=== PATIENT | female | born 1945 | race Caucasian/White ===

== ENCOUNTER 2023-04-16 14:49 | Emergency (ER) | payer OTHER, SELFPAY ==
[2023-04-16] VITALS (10 sets, daily range): BP systolic 87–157; BP diastolic 55–117; BMI 25.8
[2023-04-16 15:18] LABS: % Basophils 0.1 % (0-2); % Eosinophils 0.8 % (0-6); % Immature Granulocytes 0.3 % (0-0.5); % Lymphocytes 16.6 % (20.5-51.1); % Monocytes 8.5 % (1.7-9.3); % Neutrophils 73.7 % (42.2-75.2); Absolute Eosinophils 0.1 10^3/uL (0-0.7); Absolute Lymphocytes 1.6 10^3/uL (1.2-3.4); Absolute Monocytes 0.8 10^3/uL (0.1-0.6); Hematocrit 35.6 % (37.0-47.0); Hemoglobin 12.4 g/dL (12.0-16.0); Mean Corp Hgb Conc. 34.8 g/dL (33.0-37.0); Mean Corpuscular Hgb 30.2 pg (27.0-31.0); Mean Corpuscular Volume 86.8 fL (81.0-99.0); Mean Platelet Volume 8.8 fL (7.4-10.4); Nucleated Red Blood Cells % 0 %; Platelet Count 340 10^3/uL (130-400); White Blood Cell Count 9.5 10^3/uL (4.8-10.8)
--- NOTE | 2023-04-16 15:34 | ED.GENMED ---
History of Present Illness
<DINORAH Rush - Last Filed: 04/16/23 19:28>
General
Chief Complaint: Dizziness
Source: patient
Exam Limitations: none
Time Seen by Provider: 04/16/23 15:04
Nursing documentation reviewed up to this point in time: agreed with
Travel History
Have you had any contact with someone who has COVID-19?: No
Do you have any symptoms of coronavirus? Fever > 100 degrees, chills, cough, shortness of breath, sore throat, loss of taste or smell, muscle aches, or headache?: No
History of Present Illness
History of Present Illness:
77-year-old female presents to the ER for evaluation. Patient points has a history of vertigo/dizziness and normally takes meclizine. She has been dealing with vertigo in the past week. She reports with her vertigo she does not necessarily have a
room spinning sensation but she normally will feel off balance with vertigo. She reports today she came to the ER because it was not going away. She also noticed that yesterday she felt very warm but did not realize she had a fever. She denies
any runny nose nasal congestion sore throat. She denies any nausea vomiting abdominal pain urinary frequency urgency. She does report that she was treated for UTI 3 weeks ago
Past History
<DINORAH Rush - Last Filed: 04/16/23 19:28>
Past History
ED Past Medical History: GERD, HTN, Hypercholesterolemia, NIDDM and Other (carpal tunnel syndrome, Vertigo, Anemia,)
ED Past Surgical History: Appendectomy
Social History
Tobacco: Non-smoker
Alcohol: None
Drug: None
Personal:
Living: alone
Employment: Employed
Family History
Family History: Hypertension
Review of Systems
<DINORAH Rush - Last Filed: 02/17/24 19:28>
Review of Systems
Allergies reviewed?: Yes
All Other Systems: ROS reviewed and negative except as documented in HPI and ROS
Constitutional: Reports fever
EENT: Reports no symptoms
Respiratory: Reports no symptoms; Denies cough
Cardiac: Reports no symptoms
ABD/GI: Reports no symptoms; Denies abdominal pain, nausea or vomiting
: Reports no symptoms; Denies flank pain, urgency or discharge
Musculoskeletal: Reports no symptoms
Skin: Reports no symptoms
Neurological: Reports dizzy
Hematologic/Lymphatic: Reports no symptoms
Psychiatric: Reports no symptoms
Phy Exam
<DINORAH Rush - Last Filed: 04/16/23 19:28>
General Physical Exam
General Presentation: no apparent distress
General age: appears stated age
General Skin: warm and dry
General Habitus: normal
General Mental: alert
General Hydration: appears well hydrated
Cardiovascular Exam
Cardiovascular Exam: no murmur and tachycardia
Pulmonary Exam
Pulmonary Exam: lungs clear
Neurological Exam
Neurological Exam: alert, oriented x3, no motor deficits, no sensory deficits and speech normal
Mindy Coma Scale
Eye Opening: Spontaneous
Verbal Response: Oriented
Motor Response: Obeys Commands
GCS Total Score: 15
Cerebellar
Cerebellar Function: normal finger to nose
Musculoskeletal Exam
Musculoskeletal Exam: full ROM
Skin Exam
Skin Exam: normal color and warm/dry
Psychiatric Exam
Psychiatric Exam: normal mood/affect
<Elva Flores MD - Last Filed: 04/16/23 18:37>
Mindy Coma Scale
GCS Total Score: 15
<Pedrito Collado PA-C - Last Filed: 04/17/23 08:52>
Mclean Coma Scale
GCS Total Score: 15
Course
<DINORAH Rush - Last Filed: 04/16/23 19:28>
Orders/Labs/Results
Orders:
Orders
04/16/23 14:57
Electrocardiogram (*1) Urgent
Reason for Study: Vertigo / Dizzy
04/16/23 14:58
EKG- Treatment ONCE
04/16/23 15:00
Blood Culture Q30M
MELANIE Source: Blood/Venous
Specimen Description:
Blood Culture Q30M
MELANIE Source: Blood/Venous
Specimen Description:
Influenza A+B Rapid Molecular Urgent
MELANIE Source: Nasal Swab
Specimen Description:
04/16/23 15:01
COVID-19 Antigen Urgent
Source: Nasal Swab
Complete Blood Count/With Diff Urgent
Comprehensive Metabolic Panel Urgent
Lactic Acid Urgent
Troponin I Urgent
04/16/23 16:06
UA Reflex to Culture [Urinalysis Reflex To Culture] Urgent
Date Specimen was Collected: 04/16/23
Time Specimen was Collected: 15:57
Urine Microscopic Reflex Cult Urgent
Urine Culture Urgent
MELANIE Source: U
Specimen Description:
Date Specimen was Collected: 04/16/23
Time Specimen was Collected: 15:57
04/16/23 17:09
Acetaminophen [Tylenol] 650 mg PO NOW STA
04/16/23 17:36
CefTRIAXone [Rocephin] 1,000 mg IV NOW STA
04/16/23 17:37
Meclizine [Antivert] 25 mg PO NOW STA
Abnormal Lab Results
04/16/23 04/16/23
15:01 16:06
RBC 4.10 L 10^6/uL
(4.20-5.40)
Hct 35.6 L %
(37.0-47.0)
Absolute Neuts (auto) 7.0 H 10^3/uL
(1.4-6.5)
Absolute Monos (auto) 0.8 H 10^3/uL
(0.1-0.6)
Lymphocytes % 16.6 L %
(20.5-51.1)
Glucose 119 H mg/dl
(70-99)
Ur Occult Blood Reflex 1+ A
(Negative)
Urine Nitrite (Reflex) Positive A
(Negative)
Leukocyte Esterase Rfl 2+ A
(Negative)
Urine WBC (Reflex) 11-15 A /HPF
(0-5)
Urine Bacteria (Reflex) Many A
(Negative)
Urine Albumin (Reflex) 1+ A
(Neg - Trace)
04/16/23 15:01
04/16/23 15:01
Vital Signs
Initial and Last Documented VS:
Initial Vital Signs
Temp Pulse Resp BP Pulse Ox
100.4 F H 108 20 87/76 99
04/16/23 14:51 04/16/23 14:51 04/16/23 14:51 04/16/23 14:51 04/16/23 14:51
Last Documented Vital Signs
Temp Pulse Resp BP Pulse Ox
100.4 F H 96 16 145/57 93
04/16/23 14:51 04/16/23 19:30 04/16/23 19:30 04/16/23 18:08 04/16/23 18:30
Wiper Blender consulted with Physician
Wiper Blender consulted with physician?: Yes
Name of Physician Consulted: lucio
<Elva Flores MD - Last Filed: 04/16/23 18:37>
Orders/Labs/Results
Orders:
Orders
04/16/23 14:57
Electrocardiogram (*1) Urgent
Reason for Study: Vertigo / Dizzy
04/16/23 14:58
EKG- Treatment ONCE
04/16/23 15:00
Blood Culture Q30M
MELANIE Source: Blood/Venous
Specimen Description:
Blood Culture Q30M
MELANIE Source: Blood/Venous
Specimen Description:
Influenza A+B Rapid Molecular Urgent
MELANIE Source: Nasal Swab
Specimen Description:
04/16/23 15:01
COVID-19 Antigen Urgent
Source: Nasal Swab
Complete Blood Count/With Diff Urgent
Comprehensive Metabolic Panel Urgent
Lactic Acid Urgent
Troponin I Urgent
04/16/23 16:06
UA Reflex to Culture [Urinalysis Reflex To Culture] Urgent
Date Specimen was Collected: 04/16/23
Time Specimen was Collected: 15:57
Urine Microscopic Reflex Cult Urgent
Urine Culture Urgent
MELANIE Source: U
Specimen Description:
Date Specimen was Collected: 04/16/23
Time Specimen was Collected: 15:57
04/16/23 17:09
Acetaminophen [Tylenol] 650 mg PO NOW STA
04/16/23 17:36
CefTRIAXone [Rocephin] 1,000 mg IV NOW STA
04/16/23 17:37
Meclizine [Antivert] 25 mg PO NOW STA
Abnormal Lab Results
04/16/23 04/16/23
15:01 16:06
RBC 4.10 L 10^6/uL
(4.20-5.40)
Hct 35.6 L %
(37.0-47.0)
Absolute Neuts (auto) 7.0 H 10^3/uL
(1.4-6.5)
Absolute Monos (auto) 0.8 H 10^3/uL
(0.1-0.6)
Lymphocytes % 16.6 L %
(20.5-51.1)
Glucose 119 H mg/dl
(70-99)
Ur Occult Blood Reflex 1+ A
(Negative)
Urine Nitrite (Reflex) Positive A
(Negative)
Leukocyte Esterase Rfl 2+ A
(Negative)
Urine WBC (Reflex) 11-15 A /HPF
(0-5)
Urine Bacteria (Reflex) Many A
(Negative)
Urine Albumin (Reflex) 1+ A
(Neg - Trace)
04/16/23 15:01
04/16/23 15:01
Vital Signs
Initial and Last Documented VS:
Initial Vital Signs
Temp Pulse Resp BP Pulse Ox
100.4 F H 108 20 87/76 99
04/16/23 14:51 04/16/23 14:51 04/16/23 14:51 04/16/23 14:51 04/16/23 14:51
Last Documented Vital Signs
Temp Pulse Resp BP Pulse Ox
100.4 F H 96 16 145/57 93
04/16/23 14:51 04/16/23 19:30 04/16/23 19:30 04/16/23 18:08 04/16/23 18:30
Blakelt;Pedrito Collado PA-C - Last Filed: 04/17/23 08:52>
Orders/Labs/Results
Orders:
Orders
04/16/23 14:57
Electrocardiogram (*1) Urgent
Reason for Study: Vertigo / Dizzy
04/16/23 14:58
EKG- Treatment ONCE
04/16/23 15:00
Blood Culture Q30M
MELANIE Source: Blood/Venous
Specimen Description:
Blood Culture Q30M
MELANIE Source: Blood/Venous
Specimen Description:
Influenza A+B Rapid Molecular Urgent
MELANIE Source: Nasal Swab
Specimen Description:
04/16/23 15:01
COVID-19 Antigen Urgent
Source: Nasal Swab
Complete Blood Count/With Diff Urgent
Comprehensive Metabolic Panel Urgent
Lactic Acid Urgent
Troponin I Urgent
04/16/23 16:06
UA Reflex to Culture [Urinalysis Reflex To Culture] Urgent
Date Specimen was Collected: 04/16/23
Time Specimen was Collected: 15:57
Urine Microscopic Reflex Cult Urgent
Urine Culture Urgent
MELANIE Source: U
Specimen Description:
Date Specimen was Collected: 04/16/23
Time Specimen was Collected: 15:57
04/16/23 17:09
Acetaminophen [Tylenol] 650 mg PO NOW STA
04/16/23 17:36
CefTRIAXone [Rocephin] 1,000 mg IV NOW STA
04/16/23 17:37
Meclizine [Antivert] 25 mg PO NOW STA
Abnormal Lab Results
04/16/23 04/16/23
15:01 16:06
RBC 4.10 L 10^6/uL
(4.20-5.40)
Hct 35.6 L %
(37.0-47.0)
Absolute Neuts (auto) 7.0 H 10^3/uL
(1.4-6.5)
Absolute Monos (auto) 0.8 H 10^3/uL
(0.1-0.6)
Lymphocytes % 16.6 L %
(20.5-51.1)
Glucose 119 H mg/dl
(70-99)
Ur Occult Blood Reflex 1+ A
(Negative)
Urine Nitrite (Reflex) Positive A
(Negative)
Leukocyte Esterase Rfl 2+ A
(Negative)
Urine WBC (Reflex) 11-15 A /HPF
(0-5)
Urine Bacteria (Reflex) Many A
(Negative)
Urine Albumin (Reflex) 1+ A
(Neg - Trace)
04/16/23 15:01
04/16/23 15:01
Vital Signs
Initial and Last Documented VS:
Initial Vital Signs
Temp Pulse Resp BP Pulse Ox
100.4 F H 108 20 87/76 99
04/16/23 14:51 04/16/23 14:51 04/16/23 14:51 04/16/23 14:51 04/16/23 14:51
Last Documented Vital Signs
Temp Pulse Resp BP Pulse Ox
100.4 F H 96 16 145/57 93
04/16/23 14:51 04/16/23 19:30 04/16/23 19:30 04/16/23 18:08 04/16/23 18:30
<DINORAH Rush - Last Filed: 04/16/23 19:28>
MDM/Problems Addressed
Differential Diagnosis Includes:
not limited to:
Vertigo dehydration infection
MDM/Problems Addressed:
Patient is a 77-year-old female with known vertigo who presented with dizziness that she describes as her typical vertigo today however it is not resolving. This is what prompted her to come to the ER. She did have meclizine. She did admit to
having a warm face yesterday did present with a low-grade temperature here in the ER however denied any recent illness. She denies any runny nose cough nasal congestion sore throat. She reports recently 3 weeks ago she had a UTI that was treated.
At that time however she reports she was asymptomatic. She reports her family doctor told her she had it but she was unaware because of no symptoms. She does present here again with a low-grade temperature of 100.4 with a normal white count 9.5
stable hemoglobin normal lactic acid normal renal function urine does appear infected. She is negative for COVID-negative influenza
Patient was given fluids here in the ER along with meclizine and 1 dose of Rocephin. She was monitored here she is steady and ambulatory with her cane. She feels safe to go home. Case d/c w/ ED attending who evaluated patient. will d/c w/ Keflex.
Chronic conditions affecting care:
vertigo
<DINORAH Rush - Last Filed: 04/16/23 19:28>
*Pulse Oximetry
Patient hypoxic: no
*EKG
Interpreted by ED Provider?: Yes
Heart Rate: 102
Rate: tachycardiac
Rhythm: sinus and other (with pacs )
Ischemia: no ischemia
*Critical Care Note
Total Time (30-74mins, 75-104mins- exclusive of procedures): Not Applicable
<Pedrito Collado PA-C - Last Filed: 04/17/23 08:52>
Update Note
Update Note:
April 17 8:51 AM: Blood cultures positive for gram-negative bacilli. Patient states she was not feeling well this morning. Recommended she come back as soon as possible for further evaluation and potential admission to hospital secondary to
gram-negative bacteremia
ED Attending Note
<DINORAH Rush - Last Filed: 04/16/23 19:28>
-
Portions of this chart may have been created with voice recognition software.� Occasional wrong word or��sound alike� substitutions may have occurred due to the inherent limitations of voice recognition software.
<Elva Flores MD - Last Filed: 04/16/23 18:37>
ED Attending Note
Patient seen and examined by attending physician: Yes
I performed the substantive portion of visit, reviewed & personally made and approve the management plan that is documented in note by myself or ALISA.: Yes
ED Attending Note:
Pt awake, alert well appearing, neuroint act. No 'red flag' findings/sxs to suggest central process. Encouraged pt to check ucx for final report. Will ambulate before d/c
Discharge Plan
Departure
Patient Disposition: Home (Routine Discharge)
Date of Disposition: 04/16/23
Time of Disposition: 19:23
Patient with high blood pressure during this ER visit?: Yes
Condition: Fair
Covid-19: Negative COVID-19
Discharge Problem:
Vertigo, Acute UTI
Instructions: Urinary Tract Infection, Adult (DC), Vertigo (a Type of Dizziness) (DC), BLOOD PRESSURE
Prescriptions:
New
cephalexin 500 mg capsule
500 mg PO Q6H Qty: 28 0RF
No Action
atenolol [Tenormin] 100 MG tablet
100 mg PO HS
simvastatin 20 MG tablet
20 mg PO HS
metformin 500 MG tablet extended release 24 hr
500 mg PO BID
multivitamin Tablet
1 tab PO DAILY
tamsulosin 0.4 mg Capsule
0.4 mg PO DAILY
aspirin 81 MG tablet,chewable
81 mg PO HS
amlodipine 5 mg Tablet
5 mg PO DAILY 30 Days Qty: 30 0RF
tramadol 50 mg Tablet
50 mg PO Q6HPRN PRN (Reason: moderate pain) 30 Days Qty: 30 0RF
acetaminophen [Pain Reliever ES(acetaminophn)] 500 mg Tablet
1,000 mg PO TID 14 Days Qty: 84 0RF
pantoprazole 40 mg Tablet,Delayed Release (Dr/Ec)
40 mg PO DAILY 30 Days Qty: 30 0RF
gabapentin 100 mg Capsule
100 mg PO TID 30 Days Qty: 90 0RF
prednisone 10 mg Tablet
See Rx Instructions .ROUTE .COMPLEX Qty: 30 0RF
Rx Instructions:
Take By Mouth starting Tuesday01/03/22:
30 mg daily x3 days,20 mg daily x3 days, 10 mg daily x3 days.
Referrals:
Shekhar Gonzales MD [Family Provider] -
Activity Restrictions/Additional Instructions:
As discussed you have a urinary tract infection. Take antibiotic as directed. This medication was sent to your pharmacy. Stay well-hydrated. You may continue to take your meclizine as needed.
Follow-up with family doctor in the next 2 to 3 days for reevaluation of symptoms. Return if any worsening of symptoms of fevers nausea vomiting back pain, dizziness difficulty walking or any further concerns.
Interventions
Interventions:
*Risk Screen - Suicide Last Done: 04/16/23 14:51
*General Assessment Last Done: 04/16/23 14:51
*Neglect/Abuse Screening Last Done: 04/16/23 14:51
*ED COVID-19 Vaccine History Last Done: 04/16/23 14:51
*Nursing Disposition Last Done: 04/16/23 20:28
ED- Neurological Assessment Last Done: 04/16/23 15:05
ED Swallowing Screen Last Done: 04/16/23 17:15
Discharge Date and Time
Discharge Date/Time: 04/16/23 20:29
[2023-04-16 15:38] LABS: COVID-19 Antigen Negative (Negative)
[2023-04-16 15:45] LABS: ALT (SGPT) 13 U/L (0-35); AST (SGOT) 21 U/L (14-36); Albumin 3.7 g/dl (3.5-5.0); Alkaline Phosphatase 85 U/L (38-126); Blood Urea Nitrogen 15 mg/dl (7-17); Calcium 9.6 mg/dl (8.4-10.2); Carbon Dioxide 26 mmol/L (22-30); Chloride 99 mmol/L (98-107); Estimated Creatinine Clearance 50 ml/min; Glucose 119 mg/dl (70-99); Lactic Acid 1.5 mmol/L (0.7-2.0); Potassium 4.2 mmol/L (3.5-5.1); Sodium 136 mmol/L (135-145); Total Bilirubin 0.5 mg/dl (0.2-1.3); Total Protein 6.4 g/dl (6.3-8.2); eGFR > 60.00
[2023-04-16 15:56] LABS: Troponin I < 0.012 ng/ml
[2023-04-16 16:15] LABS: Urine Albumin 1+ (Neg - Trace); Urine Bilirubin Negative (Negative); Urine Character Very Cloudy (Clear); Urine Color Yellow; Urine Glucose Negative (Negative); Urine Ketone Negative (Negative); Urine Leukocyte 2+ (Negative); Urine Nitrite Positive (Negative); Urine Occult Blood 1+ (Negative); Urine Urobilinogen Negative (Neg - 1+); Urine pH 6.5 (5.0-9.0)
[2023-04-16 16:24] LABS: Urine Bacteria Many (Negative); Urine Red Blood Cell 0-2 /HPF (0-2)
[2023-04-16] MEDS: TYLENOL 650 MG PO (17:18)
[2023-04-16] MEDS: ROCEPHIN 1000 MG IV (17:54)
[2023-04-16] MEDS: ANTIVERT 25 MG PO (17:54)
--- NOTE | 2023-04-16 18:18 | EDRN ---
blood pressure from 18:00 charted in error. repeat blood pressure 145/57
== END 2023-04-16 20:29 | disposition home or self-care (01) ==
LOC: EMR 14:49
PROVIDERS: Nurse Practitioner; EMERGENCY PHYSICIAN Emergency Medicine; FAMILY PHYSICIAN Family Medicine
DX: N39.0 Urinary tract infection, site not specified (principal); R42 Dizziness and giddiness; I10 Essential (primary) hypertension; Z11.52 Encounter for screening for COVID-19
CPT/HCPCS: 99284; 96374; 80053; 81003; 81015; 83605; 84484; 85025; 87040; 87077; 87086; 87149; 87186; 87205; 87502; 87811; 93005

== ENCOUNTER 2023-04-17 14:56 | Inpatient (IN) | payer OTHER, SELFPAY ==
[2023-04-17] VITALS (8 sets, daily range): BP systolic 109–170; BP diastolic 41–93; BMI 27.3; BMI 26.7
--- NOTE | 2023-04-17 11:40 | ED.GENMED ---
History of Present Illness
General
Chief Complaint: Abnormal Lab Value
Source: patient
Exam Limitations: none
Time Seen by Provider: 04/17/23 11:09
Nursing documentation reviewed up to this point in time: agreed with
Travel History
Have you had any contact with someone who has COVID-19?: No
Do you have any symptoms of coronavirus? Fever > 100 degrees, chills, cough, shortness of breath, sore throat, loss of taste or smell, muscle aches, or headache?: No
History of Present Illness
History of Present Illness:
77-year-old female with a history of frequent UTIs, hypertension, hyperlipidemia presents from home after being called back for positive blood cultures. Patient was seen here yesterday for dizziness and a low-grade temperature. She did have a
nitrate positive urine which she is oftentimes had. Apparently her family doctor had thought she was having frequent UTIs and required multiple antibiotics but patient had been seen by urology and they told her that sometimes people have colonized
bacteria and do not need treatment. She has never had any bladder or kidney procedures. She is never had any kidney stones. She last did have a round of antibiotics 10 days ago from her family doctor.
Overnight patient says she had a low-grade temperature but at this morning she had some lightheadedness with standing but otherwise has no other symptoms like urinary discomfort, chest pain, shortness of breath, abdominal pain, nausea, vomiting,
diarrhea, dysuria.
Patient is febrile here. According to old cultures she has had ESBL E. coli. It has been resistant to cefepime
Past History
Past History
ED Past Medical History: GERD, HTN, Hypercholesterolemia, NIDDM and Other (carpal tunnel syndrome, Vertigo, Anemia,)
ED Past Surgical History: Appendectomy
Social History
Tobacco: Non-smoker
Alcohol: None
Drug: None
Personal:
Living: alone
Employment: Employed
Family History
Family History: Hypertension
Review of Systems
Review of Systems
Allergies reviewed?: Yes
All Other Systems: Not applicable
Phy Exam
Physical Exam
Physical Exam:
GENERAL: Alert , in no apparent distress, nontoxic
EYE: pupils equal and reactive
NECK: Supple
ENT: mmm, no erythema
CARDIAC: Regular rate and rhythm, no edema + systolic murmur 2/6
LUNGS: Clear breath sounds bilaterally, no acute respiratory distress, no wheezes/rales/rhonchi, occ cough
ABDOMEN: Soft, without focal tenderness, no r/g, no cvat, normal bowel sounds
NEUROLOGICAL: Alert and oriented, no focal neuro deficits
SKIN: Warm and dry, skin intact.
MUSCULOSKELETAL: No edema, well perfused.
PSYCH: Normal and appropriate interaction.
Course
Orders/Labs/Results
Orders:
Orders
04/17/23 Breakfast
Cholesterol Lowering
At Your Request: Full Participation
Does patient need a safe tray?: No
Cholesterol Lowering: Sodium, 2 Gram
04/17/23 11:37
0.9% Sodium Chloride 1000 ml [Nss] 1,000 ml IV BOLUS
04/17/23 11:39
Piperacillin/Tazo 3.375 Gram [Zosyn] 3.375 gram in 50 ml IV NOW
04/17/23 11:40
Acetaminophen [Tylenol] 650 mg PO NOW STA
04/17/23 11:50
Comprehensive Metabolic Panel Urgent
Blood Culture Q30M
MELANIE Source: Blood/Venous
Specimen Description:
Blood Culture Q30M
MELANIE Source: Blood/Venous
Specimen Description:
04/17/23 11:51
Complete Blood Count/With Diff Urgent
Lactic Acid Q4H
Comment: CANCEL 2nd LACTIC ACID IF 1st LACTIC ACID IS LESS THAN 2
04/17/23 14:23
Admit/Transfer Patient As Directed
Co-Sign Provider:
Level of Care: Inpatient admission
Assign to:: Telemetry
Physician / Group: Winnie/medicine
Diagnosis: sepsis, bacteremia, uti
Reason for Telemetry: Arrhythmia
Date to Stop Telemetry: 04/20/23
Time to Stop Telemetry: 11:00
Reason for Hospitalization: sepsis, bacteremia, uti
Expected length of stay greater than two midnights?: Yes
ELOS- Estimated Length of Stay in days: 3
I certify the patient meets the requirements for IP care: Yes
04/17/23 14:30
Code Status As Directed
Resuscitation Status: Full Code
04/17/23 16:17
Acetaminophen [Tylenol] 650 mg PO Q6HPRN PRN
Heparin 5,000 units SC Q8
Lactated Ringers [Lr] 1,000 ml IV 100 mls/hr
04/17/23 16:17
Echo 2D MMode Color/Doppler Routine
Reason for Study: vegetations
INFECTIOUS DISEASE CONSULT Routine
Consulting Provider: Clarke Taylor
Was physician already notified: Yes
Activity As Directed
Activity Level: As Tolerated
Intake/ Output As Directed
Frequency: q12h
Vital Signs As Directed
Frequency: Per unit guidelines
DX Deep Vein Thrombosis Video Routine
04/17/23 16:30
Insulin Aspart Corrective Low [Novolog Flexpen-Low Resistance] See Protocol SC AC
04/17/23 22:00
Aspirin Chewable [Low Strength Aspirin] 81 mg PO HS
04/18/23 06:00
Complete Blood Count/No Diff IN AM
Comprehensive Metabolic Panel IN AM
Magnesium IN AM
Phosphorus IN AM
Blood Culture IN AM
MELANIE Source: Blood/Venous
Specimen Description:
04/20/23 11:00
DC Protocol for Telemetry ONCE
Abnormal Lab Results
04/17/23 04/17/23
11:50 11:51
RBC 4.05 L 10^6/uL
(4.20-5.40)
Hct 35.1 L %
(37.0-47.0)
Absolute Lymphs (auto) 1.1 L 10^3/uL
(1.2-3.4)
Absolute Monos (auto) 0.7 H 10^3/uL
(0.1-0.6)
Neutrophils % 76.1 H %
(42.2-75.2)
Lymphocytes % 14.4 L %
(20.5-51.1)
Glucose 112 H mg/dl
(70-99)
04/17/23 11:51
04/17/23 11:50
Vital Signs
Initial and Last Documented VS:
Initial Vital Signs
Temp Pulse Resp BP Pulse Ox
100.9 F H 96 16 133/64 96
04/17/23 10:32 04/17/23 10:32 04/17/23 10:32 04/17/23 10:32 04/17/23 10:32
Last Documented Vital Signs
Temp Pulse Resp BP Pulse Ox
97.9 F 84 18 147/72 96
04/17/23 16:26 04/17/23 16:26 04/17/23 16:26 04/17/23 16:26 04/17/23 16:26
MDM/Problems Addressed
Differential Diagnosis Includes:
Bacteremia, sepsis
MDM/Problems Addressed:
floresita suarez 77 y/o F h/o frequent UTI; here yesterday for dizziness, fever; had nitrite pos urine, given rocephin, went home and got call for gram neg bacilli in blood culture bottles; normotensive, febrile, well appearing; upon review of previous
urine cultures, patient has had ESBL e coli in the past, resistant to cefepime; will give zosyn.
*Critical Care Note
Total Time (30-74mins, 75-104mins- exclusive of procedures): Not Applicable
ED Attending Note
-
Portions of this chart may have been created with voice recognition software.� Occasional wrong word or��sound alike� substitutions may have occurred due to the inherent limitations of voice recognition software.
Discharge Plan
Departure
Patient Disposition: Admit
Date of Disposition: 04/17/23
Time of Disposition: 11:45
Admit to: Med/Surg
Presentation/result/management discussed w/ accepting MD/DO: Hospitalist
Patient with high blood pressure during this ER visit?: No
Condition: Fair
Covid-19: Not Applicable
Discharge Problem:
UTI (urinary tract infection), Bacteremia
Interventions
Interventions:
*Risk Screen - Suicide Last Done: 04/17/23 12:31
*General Assessment Last Done: 04/17/23 12:31
*Neglect/Abuse Screening Last Done: 04/17/23 12:31
ED- Fall Risk Assessment Last Done: 04/17/23 12:32
*ED COVID-19 Vaccine History Last Done: 04/17/23 12:31
*Nursing Disposition Last Done: 04/17/23 16:32
Discharge Date and Time
Discharge Date/Time: 04/17/23 16:32
[2023-04-17] MEDS: ZOSYN 50 IV (11:53)
[2023-04-17] MEDS: NSS 1000 IV (11:53)
[2023-04-17] MEDS: TYLENOL 650 MG PO (11:59)
[2023-04-17 12:11] LABS: % Basophils 0.4 % (0-2); % Eosinophils 0.1 % (0-6); % Immature Granulocytes 0.3 % (0-0.5); % Lymphocytes 14.4 % (20.5-51.1); % Monocytes 8.7 % (1.7-9.3); % Neutrophils 76.1 % (42.2-75.2); Absolute Lymphocytes 1.1 10^3/uL (1.2-3.4); Absolute Monocytes 0.7 10^3/uL (0.1-0.6); Absolute Neutrophils 5.7 10^3/uL (1.4-6.5); Hematocrit 35.1 % (37.0-47.0); Hemoglobin 12.3 g/dL (12.0-16.0); Mean Corpuscular Hgb 30.4 pg (27.0-31.0); Mean Corpuscular Volume 86.7 fL (81.0-99.0); Mean Platelet Volume 8.9 fL (7.4-10.4); Nucleated Red Blood Cells % 0 %; Platelet Count 325 10^3/uL (130-400); Red Blood Cell Count 4.05 10^6/uL (4.20-5.40); Red Cell Dist. Width 12.7 % (11.5-14.5); White Blood Cell Count 7.4 10^3/uL (4.8-10.8)
[2023-04-17 12:22] LABS: Lactic Acid 0.9 mmol/L (0.7-2.0)
[2023-04-17 12:24] LABS: ALT (SGPT) 14 U/L (0-35); AST (SGOT) 24 U/L (14-36); Albumin 3.9 g/dl (3.5-5.0); Alkaline Phosphatase 86 U/L (38-126); Blood Urea Nitrogen 11 mg/dl (7-17); Calcium 9.2 mg/dl (8.4-10.2); Carbon Dioxide 26 mmol/L (22-30); Chloride 104 mmol/L (98-107); Estimated Creatinine Clearance 43 ml/min; Glucose 112 mg/dl (70-99); Potassium 4.5 mmol/L (3.5-5.1); Sodium 136 mmol/L (135-145); Total Bilirubin 0.5 mg/dl (0.2-1.3); Total Protein 6.5 g/dl (6.3-8.2); eGFR > 60.00
--- NOTE | 2023-04-17 14:51 | HPS.HSE ---
Family Physician
-
Family Physician: Shekhar Gonzales
Chief Complaint
-
positive blood cultures
History of Present Illness
76y F with PMH significant for HTN and DM-II�, right lower extremity radiculopathy, now presents for bacteremia. Patient was seen yesterday 04/16 for regular/dizziness, noted takes meclizine. Patient had low-grade temperature at that time, and
recently treated for UTI 3 weeks ago. No symptoms. Patient was given fluids, 1 dose of Rocephin yesterday and decision was to discharge home on Keflex. Blood cultures have turned out positive today prompting patient to return back to the hospital
for further interventions. Patient still spiking temperature 100.9, pulse 96, respiratory rate 21. UA positive yesterday. Blood cultures positive, ESBL in the blood. Still pending urine cultures. Started on antibiotics, fluids.
Medical History
Past Medical History
Past Medical History: Reports Other
Additional Past Medical History:
Hypertension
DM-II
Past Surgical History: Reports Other
Additional Past Surgical History:
Appendectomy
Social History
Tobacco: Non-smoker
Alcohol: None
Drug: None
Family History
Family History: Not pertinent
Allergies / Home Medications
Allergies reflects when Allergies were last updated in [facility].
Home Medications with original date entered in [facility]
Allergy/Medication List:
Allergies
Allergy/AdvReac Type Severity Reaction Status Date / Time
losartan Allergy Swelling Verified 12/30/21 15:25
Home Medications
atenolol 100 mg tablet (Tenormin) 100 mg PO HS 10/27/18
metformin 500 mg tablet,extended release 24 hr 500 mg PO BID 10/27/18
simvastatin 20 mg tablet 20 mg PO HS 10/27/18
prednisone 10 mg tablet See Rx Instructions .Route .COMPLEX #30 tabs 12/26/21
aspirin 81 mg chewable tablet 81 mg PO HS 12/30/21
multivitamin 1 tab PO DAILY 12/30/21
sulfamethoxazole 800 mg-trimethoprim 160 mg tablet (Bactrim DS) 1 tab PO BID 12/30/21
tamsulosin 0.4 mg capsule 0.4 mg PO DAILY 12/30/21
Review of Systems
-
History Source: Patient
A 12 point ROS was completed and negative except as noted: Yes
Physical Exam
Vital Signs
Vital Signs
Temp Pulse Resp BP Pulse Ox
100.9 F H 81 17 110/41 94
04/17/23 10:32 04/17/23 14:15 04/17/23 14:15 04/17/23 13:55 04/17/23 14:15
Physical Exam
General: Well Developed and Well Nourished
HEENT: NormoCephalic
Respiratory: Clear
Cardiac: S1/S2 and Regular Rhythm
GI: Soft
Musculoskeletal: No Clubbing
Skin: Warm
Neuro: Awake, Alert, Oriented and AO x 3
Hematologic/Lymphatic: No Lymphadenopathy
Psych: Calm
Laboratory Results
-
04/17/23 11:51
04/17/23 11:50
Laboratory Results
Lactic Acid Cancelled 04/17/23 15:45
Total Bilirubin 0.5 mg/dl (0.2-1.3) 04/17/23 11:50
AST 24 U/L (14-36) 04/17/23 11:50
ALT 14 U/L (0-35) 04/17/23 11:50
Alkaline Phosphatase 86 U/L (38-126) 04/17/23 11:50
Data Reviewed
-
Lab Data: Labs Reviewed by me
Impression/Plan
-
IMPRESSION:
76y F with PMH significant for HTN and DM-II�, right lower extremity radiculopathy, now presents for Sepsis 2/2 to bacteremia and UTI
PLAN:
#Sepsis
#Bacteremia, ESBL
#UTI, complicated
� Continue Zosyn
� Follow-up repeat blood cultures
� Follow-up urine cultures
� Echo
� ID consulted
� IV fluids
� Ensure MAP greater than 65
� Hold antihypertensives
RLE Radiculopathy
L3-4 HNP / DDD
�-Pain control
Benign Hypertension
�-Hold antihypertensives in setting of sepsis
DM-II
�- Stable.� Hold metformin
�- SSI coverage as needed.
� Continue aspirin
#DVT prophylaxis
� HSQ
[2023-04-17 16:44] LABS: Glucose - Point of Care 90 mg/dl (70-99)
[2023-04-17] MEDS: HEPARIN 5000 UNITS SC (17:27)
[2023-04-17] MEDS: LR 1000 IV (17:28)
[2023-04-17] MEDS: LOW STRENGTH ASPIRIN 81 MG PO (20:12)
[2023-04-17 22:17] LABS: Glucose - Point of Care 117 mg/dl (70-99)
[2023-04-18] MEDS: HEPARIN 5000 UNITS SC ×2 (00:13→09:19)
[2023-04-18 04:11] VITALS: BP 108/50
[2023-04-18] MEDS: ZOSYN 50 IV ×2 (05:04→11:27)
[2023-04-18] MEDS: LR 1000 IV (05:45)
[2023-04-18 05:58] VITALS: BMI 26.5
[2023-04-18] MEDS: TYLENOL 650 MG PO ×2 (06:30→17:35)
[2023-04-18 07:00] VITALS: BP 136/73
[2023-04-18 07:55] LABS: Glucose - Point of Care 111 mg/dl (70-99)
[2023-04-18 08:23] LABS: Hematocrit 31.9 % (37.0-47.0); Hemoglobin 10.9 g/dL (12.0-16.0); Mean Corp Hgb Conc. 34.2 g/dL (33.0-37.0); Mean Corpuscular Hgb 30.4 pg (27.0-31.0); Mean Corpuscular Volume 88.9 fL (81.0-99.0); Mean Platelet Volume 9.5 fL (7.4-10.4); Platelet Count 307 10^3/uL (130-400); Red Blood Cell Count 3.59 10^6/uL (4.20-5.40); Red Cell Dist. Width 12.5 % (11.5-14.5); White Blood Cell Count 5.5 10^3/uL (4.8-10.8)
[2023-04-18 09:02] LABS: ALT (SGPT) 16 U/L (0-35); AST (SGOT) 28 U/L (14-36); Albumin 3.3 g/dl (3.5-5.0); Alkaline Phosphatase 77 U/L (38-126); Blood Urea Nitrogen 11 mg/dl (7-17); Calcium 8.8 mg/dl (8.4-10.2); Carbon Dioxide 23 mmol/L (22-30); Chloride 106 mmol/L (98-107); Estimated Creatinine Clearance 48 ml/min; Glucose 101 mg/dl (70-99); Magnesium 1.6 mg/dl (1.6-2.3); Phosphorus 3.8 mg/dl (2.5-4.5); Sodium 135 mmol/L (135-145); Total Bilirubin 0.5 mg/dl (0.2-1.3); Total Protein 5.8 g/dl (6.3-8.2); eGFR > 60.00
[2023-04-18 11:00] VITALS: BP 135/66
[2023-04-18 11:29] LABS: Glucose - Point of Care 101 mg/dl (70-99)
--- NOTE | 2023-04-18 12:14 | W.PN.HOSP.TC ---
Today's Communication/Plan
-
see A/P
Assessment / Plan
Assessment / Plan
HPI: 76y F with PMH significant for HTN and DM-II�, right lower extremity radiculopathy, presented for bacteremia.�Patient was seen 04/16 for regular dizziness, noted takes meclizine.�Patient had low-grade temperature at that time, and recently
treated for UTI 3 weeks ago.� No symptoms.� Patient was given fluids, 1 dose of Rocephin and decision was to discharge home on Keflex.� Blood cultures turned out positive prompting patient to return back to the hospital for further
interventions.�Blood cultures positive with ESBL.
A/P:
# Sepsis POA with ESBL bacteremia
# UTI, complicated
Continue Zosyn
Follow-up repeat blood cultures until clearance
Follow-up urine culture
Check kidney US
Observe off IV fluids
Hold antihypertensives for now
ID consulted
# Systolic murmur on exam
Check Echo result
# RLE Radiculopathy
Pain control
# Benign Hypertension
Hold antihypertensives in setting of sepsis
# DM-II, Stable.�
Hold metformin
SSI coverage as needed.
Continue aspirin
DVT prophylaxis� HSQ
Anticipated Discharge: 24 - 48 hours
Subjective/Interval History
-
Date of Service: April 18, 2023
Objective Data
-
Labs:
Laboratory Results
04/18/23
07:32
WBC 5.5
Hgb 10.9 L
Hct 31.9 L
Plt Count 307
Sodium 135
Potassium 4.0
Chloride 106
Carbon Dioxide 23
BUN 11
Creatinine 0.7
Glucose 101 H
Calcium 8.8
Total Bilirubin 0.5
AST 28
ALT 16
Alkaline Phosphatase 77
Vital Signs:
Vital Signs
Temp Pulse Resp BP Pulse Ox
37.0 C 81 18 136/73 97
04/18/23 07:00 04/18/23 07:00 04/18/23 07:00 04/18/23 07:00 04/18/23 07:00
I&O
04/17/23 04/18/23 04/19/23
06:59 06:59 06:59
Intake Total 240 / 240
Balance 240 / 240
Review of Systems
-
All other systems: Reviewed and negative
Physical Exam
-
General: Well Developed, Well Nourished, No Apparent Distress, Comfortable and Conversant; Negative Respiratory Distress
HEENT: Normocephalic, Atraumatic, Nose Appears Normal and Ears Appear Normal; Negative Oxygen
Respiratory: Clear to Auscultation and Non Labored Respirations; Negative Accessory Resp Muscle Use
Cardiac: Regular Rhythm and S1/S2
GI: Soft, Nontender, Nondistended and Normal Bowel Sounds
Skin: Warm and Dry
Neuro: Awake, Alert, Oriented, AO x 3 and Nonfocal/Grossly Intact
Psych: Calm and Intact Judgement/Insight
Data Reviewed
-
Labs: Labs Reviewed by me
[2023-04-18] MEDS: LR IV (12:29)
--- NOTE | 2023-04-18 13:45 | CON.ID ---
Consultation
-
Date/Time Consultation Requested: 04/17/23 16:17
Date/Time Consultation Performed: 04/18/23 13:47
Requesting Provider: Dr Zhou
Performing Provider: Dr Willett
Reason for Consultation: Bacteremia, ESBL
Chief Complaint / Past History
Chief Complaint
positive blood cultures
History of Present Illness
Ms Martinez is a 77 year old female with history of recent UTI, Dm2 who presented here on 04/16 for dizziness, fever, no dysuira, urgency or frequency, with pyuria, given ceftriaxone x1 dose and keflex, then blood cultures became positive and was
admitted. Urine culture with 100K GNR and blood cultures with ESBL E coli
Since arrival here tmax 100.9, bp stable, wbc 5.5, hgb 10.9, plt 307, L shift on admission, cr 0.7, lactic acid 0.9, t bili 0.5, ast 28, alt 16, alk phos 77, a renal US is done but not yet read, repeat blood cultures in progress, patient on
appropriate dose of zosyn, ID is consulted for assistance with management. Reports improvement in malaise since arrival.
Past History
Additional Past Medical History:
Hypertension
DM-II
Past Surgical History: Appendectomy
Allergy History:
losartan Allergy (Verified 12/30/21 15:25)
Swelling
Medications Reviewed: Yes
Social History
Tobacco: Non-Smoker
Alcohol: None
Drug: None
Family History
Family History: Not Pertinent
Review of Systems
Review of Systems
General: Negative Fever or Chills
All systems: All other systems were reviewed and were negative
Vital Signs
Temp Pulse Resp BP Pulse Ox
98.2 F 76 18 135/66 97
04/18/23 11:00 04/18/23 11:00 04/18/23 11:00 04/18/23 11:00 04/18/23 11:00
Physical Exam
Physical Exam
Constitutional: No Acute Distress
Cardiovascular: Regular Rate and S1/S2; Negative Murmur or Rub
Pulmonary: Clear and Symmetric; Negative Wheezes, Rales or Rhonchi
Gastrointestinal: Soft, Non Tender, Non Distended and Normal Bowel Sounds
Genito-Urinary: Negative Suprapubic Tenderness or CVA Tenderness
Skin: Warm and Dry; Negative Rash or Jaundice
Lab / Diagnostic Study Results
04/18/23 07:32
04/18/23 07:32
Abs Immat Gran (auto) 0.0 10^3/uL (0-0.05) 04/17/23 11:51
Absolute Neuts (auto) 5.7 10^3/uL (1.4-6.5) 04/17/23 11:51
Absolute Lymphs (auto) 1.1 10^3/uL (1.2-3.4) L 04/17/23 11:51
Absolute Monos (auto) 0.7 10^3/uL (0.1-0.6) H 04/17/23 11:51
Absolute Basos (auto) 0.0 10^3/uL (0-0.2) 04/17/23 11:51
Immature Gran % 0.3 % (0-0.5) 04/17/23 11:51
Neutrophils % 76.1 % (42.2-75.2) H 04/17/23 11:51
Lymphocytes % 14.4 % (20.5-51.1) L 04/17/23 11:51
Monocytes % 8.7 % (1.7-9.3) 04/17/23 11:51
Eosinophils % 0.1 % (0-6) 04/17/23 11:51
Basophils % 0.4 % (0-2) 04/17/23 11:51
Lactic Acid Cancelled 04/17/23 15:45
Microbiology Results
Micro:
04/17/23 11:50 Blood Culture - Preliminary
Blood/Venous No Growth in 24 hours- Final report to follow
04/17/23 11:50 Blood Culture - Preliminary
Blood/Venous No Growth in 24 hours- Final report to follow
04/18/23 07:32 Blood Culture - Pending
Blood/Venous
Assessment / Plan
ESBL UTI and Bacteremia
History of ESBL UTI
Fever
- repeat blood cultures x2 are in progress
- renal US done not yet read
- agree with zosyn at current dose as for ESBL
- asked micro lab to get doxycycline sensitivities, might be useful after blood cultures have cleared
- follow clinically
[2023-04-18 15:00] VITALS: BP 171/67
--- NOTE | 2023-04-18 15:07 | CM ---
Addendum entered by Diane Cruz 04/18/23 15:46:
TCB from [place]/outpatient infusion center.
Patient has a $5600 out of pocket deductible.
Patient may incur costs around $210 per day for medication and infusion.
Per Aimee financial counseling can be offered if needed.
Patient updated.
Spoke with Ronna at [facility], info received. Await TCB.
Original Note:
Patient seen bedside.
IA completed.
Patient lives alone in an apartment on the second floor with 4 cats.
16 steps up, no elevator.
Patient independent prior to admission.
Patient has had [facility] in the past.
Patient ambulates with a cane as needed and has a walker that she does not use.
Patient may require IV anbx, reviewed options and [facility] chosen.
Faxed script to [facility] for costs to patient. Await TCB.
Spoke with Aimee at the outpatient infusion center, she will check costs for patient.
Per patient she would prefer an oral anbx and MD is checking into it.
Daughter will transport home.
Plan: home with possible anbx.
[2023-04-18 16:55] LABS: Glucose - Point of Care 120 mg/dl (70-99)
[2023-04-18] MEDS: LOVENOX 40 MG SC (17:34)
[2023-04-18] MEDS: ZOSYN 100 IV (18:17)
[2023-04-18 19:04] VITALS: BP 141/66
[2023-04-18] MEDS: LOW STRENGTH ASPIRIN 81 MG PO (20:40)
[2023-04-18 21:41] LABS: Glucose - Point of Care 118 mg/dl (70-99)
[2023-04-18 23:35] VITALS: BP 127/54
[2023-04-19] VITALS (7 sets, daily range): BP systolic 133–174; BP diastolic 57–97
[2023-04-19] MEDS: ZOSYN 100 IV ×3 (00:14→13:18)
[2023-04-19] MEDS: TYLENOL 650 MG PO (06:14)
[2023-04-19 07:25] LABS: Hematocrit 33.6 % (37.0-47.0); Hemoglobin 11.5 g/dL (12.0-16.0); Mean Corp Hgb Conc. 34.2 g/dL (33.0-37.0); Mean Corpuscular Hgb 30.3 pg (27.0-31.0); Mean Corpuscular Volume 88.4 fL (81.0-99.0); Mean Platelet Volume 9.2 fL (7.4-10.4); Platelet Count 335 10^3/uL (130-400); Red Cell Dist. Width 12.6 % (11.5-14.5); White Blood Cell Count 4.8 10^3/uL (4.8-10.8)
[2023-04-19 08:16] LABS: Blood Urea Nitrogen 10 mg/dl (7-17); Calcium 9.3 mg/dl (8.4-10.2); Carbon Dioxide 27 mmol/L (22-30); Chloride 103 mmol/L (98-107); Estimated Creatinine Clearance 42 ml/min; Glucose 140 mg/dl (70-99); Magnesium 1.8 mg/dl (1.6-2.3); Potassium 3.9 mmol/L (3.5-5.1); Sodium 140 mmol/L (135-145); eGFR > 60.00
[2023-04-19 08:48] LABS: Glucose - Point of Care 141 mg/dl (70-99)
--- NOTE | 2023-04-19 08:49 | W.PN.HOSP.TC ---
Today's Communication/Plan
-
see A/P
Assessment / Plan
Assessment / Plan
HPI: 76y F with PMH significant for HTN and DM-II�, right lower extremity radiculopathy, presented for bacteremia.�Patient was seen 04/16 for regular dizziness, noted takes meclizine.�Patient had low-grade temperature at that time, and recently
treated for UTI 3 weeks ago.� No symptoms.� Patient was given fluids, 1 dose of Rocephin and decision was to discharge home on Keflex.� Blood cultures turned out positive prompting patient to return back to the hospital for further
interventions.�Blood cultures positive with ESBL.
A/P:
# Sepsis POA with ESBL bacteremia from UTI
Continue Zosyn
Repeat blood cultures appeared to have cleared
Follow urine culture result
kidney US: No hydronephrosis. Bilateral simple cysts.
Off IV fluid
Hold antihypertensives for now
ID on board
# Systolic murmur on exam due to Moderate aortic stenosis.
Echo with EF 64%, Normal diastolic function. Moderate aortic stenosis. No evidence of vegetation seen.
Recc outpt cardiology follow up, pt informed
# RLE Radiculopathy
Pain control
# Benign Hypertension
Hold antihypertensives in setting of sepsis
# DM-II, Stable.�
Hold metformin
SSI coverage as needed.
Continue aspirin
DVT prophylaxis� HSQ
DW RN
Anticipated Discharge: Within 24 hours
Subjective/Interval History
-
Date of Service: April 19, 2023
Objective Data
-
Labs:
Laboratory Results
04/19/23
06:52
WBC 4.8
Hgb 11.5 L
Hct 33.6 L
Plt Count 335
Sodium 140
Potassium 3.9
Chloride 103
Carbon Dioxide 27
BUN 10
Creatinine 0.8
Glucose 140 H
Calcium 9.3
Vital Signs:
Vital Signs
Temp Pulse Resp BP Pulse Ox
36.6 C 73 16 133/57 100
04/19/23 08:28 04/19/23 08:28 04/19/23 08:28 04/19/23 08:28 04/19/23 08:28
I&O
04/18/23 04/19/23 04/20/23
06:59 06:59 06:59
Intake Total 240 / 240 2520 / 2520
Balance 240 / 240 2520 / 2520
Review of Systems
-
All other systems: Reviewed and negative
Physical Exam
-
General: Well Developed, Well Nourished, No Apparent Distress, Comfortable and Conversant; Negative Respiratory Distress
HEENT: Normocephalic, Atraumatic, Nose Appears Normal and Ears Appear Normal; Negative Oxygen
Respiratory: Clear to Auscultation and Non Labored Respirations; Negative Accessory Resp Muscle Use
Cardiac: Regular Rhythm, S1/S2 and Murmur (systolic)
GI: Soft, Nontender, Nondistended and Normal Bowel Sounds
Skin: Warm and Dry
Neuro: Awake, Alert, Oriented, AO x 3 and Nonfocal/Grossly Intact
Psych: Calm and Intact Judgement/Insight
Data Reviewed
-
Labs: Labs Reviewed by me
--- NOTE | 2023-04-19 09:12 | CM ---
TC from [facility] care.
Nursing and supplies covered at 80%.
Drug copay- still checking.
[2023-04-19 12:21] LABS: Glucose - Point of Care 120 mg/dl (70-99)
--- NOTE | 2023-04-19 16:17 | W.PN.ID1 ---
Date of Service
Date of Service: April 19, 2023
Today's Communication
bactrim x 7 days
Assessment / Plan
ESBL UTI and Bacteremia
History of ESBL UTI
Fever
- repeat blood cultures x2 are in progress
- renal US no pyelonephritis or obstruction
- start bactrim DS x 7 days total
- follow up with pcp
Chief Complaint
-: UTI
Subjective / Review of Systems
afebrile
bp stable
without dysuria or cva tenderness
'I feel great'
Vital Signs / Physical Exam
Vital Signs
Vital Signs
Temp Pulse Resp BP Pulse Ox
98.1 F 94 16 148/68 98
04/19/23 15:32 04/19/23 15:32 04/19/23 15:32 04/19/23 15:32 04/19/23 15:32
Physical Exam
Constitutional: No Acute Distress
Cardiovascular: Regular Rate and S1/S2; Negative Murmur or Rub
Pulmonary: Clear and Symmetric; Negative Wheezes or Rales
Gastrointestinal: Soft, Non Tender, Non Distended and Normal Bowel Sounds
Genito-Urinary: Negative Suprapubic Tenderness or CVA Tenderness
Skin: Warm and Dry; Negative Rash or Jaundice
Objective Data
Lab Data
Lab Results
04/19/23 06:52
04/19/23 06:52
Estimated Creat Clear 42 ml/min 04/19/23 06:52
Lactic Acid Cancelled 04/17/23 15:45
Total Bilirubin 0.5 mg/dl (0.2-1.3) 04/18/23 07:32
AST 28 U/L (14-36) 04/18/23 07:32
ALT 16 U/L (0-35) 04/18/23 07:32
Alkaline Phosphatase 77 U/L (38-126) 04/18/23 07:32
Most recent labs reviewed.
Micro Results:
04/17/23 11:50 Blood Culture - Preliminary
Blood/Venous No Growth in 48 hours- Final report to follow
04/17/23 11:50 Blood Culture - Preliminary
Blood/Venous No Growth in 48 hours- Final report to follow
04/18/23 07:32 Blood Culture - Preliminary
Blood/Venous No Growth in 24 hours- Final report to follow
[2023-04-19 16:21] LABS: Glucose - Point of Care 115 mg/dl (70-99)
[2023-04-19] MEDS: LOVENOX 40 MG SC (17:31)
[2023-04-19] MEDS: BACTRIM DS 800 MG/160 MG 1 TABLET PO (19:30)
[2023-04-19 21:52] LABS: Glucose - Point of Care 85 mg/dl (70-99)
[2023-04-19] MEDS: LOW STRENGTH ASPIRIN 81 MG PO (21:52)
[2023-04-20 03:00] VITALS: BP 179/90
--- NOTE | 2023-04-20 04:26 | PTCARENOTE ---
Pt repeats 6 episodes of loose/soft brown bowel movements during shift. Will continue to monitor.
--- NOTE | 2023-04-20 04:35 | DOWNTIME ---
There was a [employer] Downtime on 04/20/2023 from 0111 to 04/20/2023 at 0405. Downtime documentation of patient's care, including medication administrations, has been reconciled in the electronic record per guidelines. Refer to the
patient's paper chart under the miscellaneous tab to see printed paper medication records and downtime forms.
[2023-04-20 07:00] LABS: Glucose - Point of Care 120 mg/dl (70-99)
[2023-04-20 07:15] VITALS: BP 160/83
[2023-04-20 08:01] LABS: Hematocrit 32.9 % (37.0-47.0); Hemoglobin 11.1 g/dL (12.0-16.0); Mean Corp Hgb Conc. 33.7 g/dL (33.0-37.0); Mean Corpuscular Volume 88.9 fL (81.0-99.0); Mean Platelet Volume 9.3 fL (7.4-10.4); Platelet Count 341 10^3/uL (130-400); Red Cell Dist. Width 12.6 % (11.5-14.5); White Blood Cell Count 4.7 10^3/uL (4.8-10.8)
[2023-04-20] MEDS: BACTRIM DS 800 MG/160 MG 1 TABLET PO (08:09)
--- NOTE | 2023-04-20 08:19 | W.PN.HOSP.TC ---
Addendum entered and electronically signed by Yu Muñoz MD 04/20/23 11:57:
Total DC time 35 minutes
Original Note:
Today's Communication/Plan
-
DC home
Assessment / Plan
Assessment / Plan
HPI: 76y F with PMH significant for HTN and DM-II�, right lower extremity radiculopathy, presented for bacteremia.�Patient was seen 04/16 for regular dizziness, noted takes meclizine.�Patient had low-grade temperature at that time, and recently
treated for UTI 3 weeks ago.� No symptoms.� Patient was given fluids, 1 dose of Rocephin and decision was to discharge home on Keflex.� Blood cultures turned out positive prompting patient to return back to the hospital for further
interventions.�Blood cultures positive with ESBL.
A/P:
# Sepsis POA with ESBL bacteremia from UTI
Urine Cx with ESBL E coli
Repeat blood cultures have cleared
Zosyn -> Bactrim 7 days per ID
kidney US: No hydronephrosis. Bilateral simple cysts.
appreciate ID input
# Systolic murmur on exam due to Moderate aortic stenosis.
Echo with EF 64%, Normal diastolic function. Moderate aortic stenosis. No evidence of vegetation seen.
Recc outpt cardiology follow up, pt informed
# RLE Radiculopathy
Pain control
# Benign Hypertension
Hold antihypertensives in setting of sepsis
# DM-II, Stable.�
Hold metformin
SSI coverage as needed.
Continue aspirin
DVT prophylaxis� HSQ
DW RN
Anticipated Discharge: Today
Subjective/Interval History
-
Date of Service: April 20, 2023
Objective Data
-
Labs:
Laboratory Results
04/20/23
06:45
WBC 4.7 L
Hgb 11.1 L
Hct 32.9 L
Plt Count 341
Sodium Pending
Potassium Pending
Chloride Pending
Carbon Dioxide Pending
BUN Pending
Creatinine Pending
Glucose Pending
Calcium Pending
Vital Signs:
Vital Signs
Temp Pulse Resp BP Pulse Ox
36.8 C 99 18 160/83 97
04/20/23 07:15 04/20/23 07:15 04/20/23 07:15 04/20/23 07:15 04/20/23 07:15
I&O
04/19/23 04/20/23 04/21/23
06:59 06:59 06:59
Intake Total 2520 / 2520 1620 / 1620
Balance 2520 / 2520 1620 / 1620
Review of Systems
-
All other systems: Reviewed and negative
Physical Exam
-
General: Well Developed, Well Nourished, No Apparent Distress, Comfortable and Conversant; Negative Respiratory Distress
HEENT: Normocephalic, Atraumatic, Nose Appears Normal and Ears Appear Normal; Negative Oxygen
Respiratory: Clear to Auscultation and Non Labored Respirations; Negative Accessory Resp Muscle Use
Cardiac: Regular Rhythm, S1/S2 and Murmur (systolic)
GI: Soft, Nontender, Nondistended and Normal Bowel Sounds
Skin: Warm and Dry
Neuro: Awake, Alert, Oriented, AO x 3 and Nonfocal/Grossly Intact
Psych: Calm and Intact Judgement/Insight
Data Reviewed
-
Labs: Labs Reviewed by me
[2023-04-20 08:38] LABS: Blood Urea Nitrogen 13 mg/dl (7-17); Calcium 9.5 mg/dl (8.4-10.2); Carbon Dioxide 27 mmol/L (22-30); Chloride 104 mmol/L (98-107); Estimated Creatinine Clearance 42 ml/min; Glucose 112 mg/dl (70-99); Potassium 3.8 mmol/L (3.5-5.1); Sodium 138 mmol/L (135-145); eGFR > 60.00
--- NOTE | 2023-04-20 10:31 | CM ---
Patient d/c home.
IMM reviewed.
Plan: home no needs.
--- NOTE | 2023-04-20 11:35 | W.DCSUMMARY ---
Discharge Summary
Discharge Data
Date of Admission: 04/17/23
Date of Discharge: 04/20/23
-
Pending Results: No
Hospital Course
Principal Diagnosis:
Sepsis on admission due to ESBL bacteremia from urinary tract infection (UTI)
Systolic murmur on exam due to Moderate aortic stenosis.
Chronic Diagnoses:�
Right leg radiculopathy
Benign Hypertension
Diabetes type II, Stable.�
Right lower extremity radiculopathy,
Consultations:�
Infectious disease
Procedures:�
None
Clinical course:�
This is a 76 year old female with past medical history as stated above, who presented with bacteremia.�Of note, patient was seen on 04/16 for regular dizziness and had low-grade temperature at that time. She was recently treated for UTI 3 weeks ago.
She was given a dose of Rocephin in the ER and discharged home on Keflex. Her blood cultures turned positive prompting the patient to be called back to the hospital for further interventions.�
Her blood cultures was positive with ESBL.
Problem 1:
Sepsis with ESBL bacteremia from UTI.
The patient's urine culture was also positive for ESBL E coli.
Her repeat blood cultures were negative for growth.
The patient initially received Zosyn, and was discharged with Bactrim DS for 7 days per ID recommendation.
Of note, her kidney US showed no evidence of hydronephrosis, noted bilateral simple cysts.
Problem 2:
Systolic murmur on exam due to Moderate aortic stenosis.
An echo was obtained which showed an EF 64%, Normal diastolic function. Moderate aortic stenosis. No evidence of vegetation seen.
The patient has been informed to follow-up with cardiology outpatient for this.
As for the rest of her medical problems, they were stable during her hospital stay.
Discharge Plan
-
Patient Disposition: Home (Routine Discharge)
Discharge Diagnosis/Procedures: Sepsis with ESBL bacteremia from urinary tract infection
Condition: Fair
Diet: As tolerated
Activity: As tolerated
Driving Restrictions: As prior to admission
Activity Restrictions/Additional Instructions:
Continue Bactrim DS for 7 days
Follow up with a felling machine operator for your heart murmur (Echo with EF 64%, Normal diastolic function. Moderate aortic stenosis. No evidence of vegetation seen)
Referrals:
Shekhar Gonzales MD [Family Provider] - in less than 1 week
Prescriptions:
New
sulfamethoxazole-trimethoprim 800-160 mg Tablet
1 tab PO BID 7 Days Qty: 14 0RF
Continued
atenolol [Tenormin] 100 MG tablet
100 mg PO DAILY@1900
simvastatin 20 MG tablet
20 mg PO HS
metformin 500 MG tablet extended release 24 hr
500 mg PO BID
multivitamin Tablet
1 tab PO DAILY
meclizine 12.5 mg Tablet
12.5 mg PO [id number] PRN (Reason: dizziness)
aspirin 81 mg Tablet,Delayed Release (Dr/Ec)
81 mg PO HS
amlodipine 5 mg tablet
5 mg PO DAILY
acetaminophen [Pain Reliever ES(acetaminophn)] 500 mg tablet
1,000 mg PO TID
Discharge Orders:
Discharge Patient (As Directed); Ordered 04/19/23
Ordered By: Yu Muñoz
Discharge Date and Time
Discharge Date/Time: 04/20/23 10:04
== END 2023-04-20 10:04 | disposition home or self-care (01) | DRG 872 ==
LOC: 4 WEST ACU 14:56
PROVIDERS: Physician Assistant; ADMITTING PHYSICIAN Internal Medicine; ATTENDING PHYSICIAN Internal Medicine; EMERGENCY PHYSICIAN Emergency Medicine; FAMILY PHYSICIAN Family Medicine; OTHER PHYSICIAN Student in an Organized Health Care Education/Training Program
DX: A41.9 Sepsis, unspecified organism (principal); N39.0 Urinary tract infection, site not specified; Z16.12 Extended spectrum beta lactamase (ESBL) resistance; I10 Essential (primary) hypertension; E11.9 Type 2 diabetes mellitus without complications; M51.16 Intervertebral disc disorders with radiculopathy, lumbar region; I35.0 Nonrheumatic aortic (valve) stenosis
CPT/HCPCS: 76775; 80048; 80053; 82962; 83605; 83735; 84100; 85025; 85027; 87040; 93306; 96365; 99285

== ENCOUNTER 2023-09-27 04:44 | Emergency (ER) | payer OTHER, SELFPAY ==
--- NOTE | 2023-09-27 04:47 | ED.GENMED ---
History of Present Illness
General
Chief Complaint: Throat Problem
Time Seen by Provider: 09/27/23 04:47
History of Present Illness
History of Present Illness:
HPI: Patient came in by ambulance due to sore throat however she is found to be febrile. She is somewhat of a limited historian. However she denies any UTI symptoms. She was here with bacteremia/UTI this past March.
EXAM:
GENERAL: Well appearing but she appears somewhat weak
HEENT: Moist oral mucosa, limited evaluation but no definite oropharyngeal exudate
CARDIOVASCULAR: 2 out of 6 systolic murmur in the right upper sternal border, normal heart rate, regular rhythm, No chest wall tenderness
PULMONARY: No respiratory distress, breath sounds are clear and equal other than questionable rales at the left base
ABDOMEN: Soft with no peritoneal signs, no tenderness
NEUROLOGIC: Fair strength all extremities, no coordination deficits
PSYCHIATRIC: Appropriate mental status, normal insight and judgement however there appears to be some mild cognitive deficits at times
EXTREMITIES: Nontender, no edema, moves all extremities equally
SKIN: No rash, no lesions
TIME OF INITIAL ENCOUNTER: 4:50 AM
NUMBER AND COMPLEXITY OF PROBLEMS ADDRESSED AT THE ENCOUNTER
� Chronic conditions affecting care: High blood pressure, hyperlipidemia, frequent UTIs, GERD, diabetes, aortic stenosis
� Acute Exacerbation and/or Progression of Chronic Illness: This is an acute problem
� Differential Diagnosis includes: Recurrence of bacteremia, UTI, pneumonia, COVID, viral syndrome
AMOUNT AND/OR COMPLEXITY OF DATA TO BE REVIEWED AND ANALYZED
� I performed an independent evaluation of and my interpretation is:
EKG:
CT:
X-rays: Chest x-ray shows no acute abnormality
Laboratory Studies: Patient is COVID-positive, white count normal, cath urine sample shows no sign of infection, chemistries unremarkable including lactic of 1.7
Other:
� Review of other/old records: I reviewed records�the patient was septic due to ESBL bacteremia from UTI
� Clinical information was obtained by an independent historian:
� Prescriptions/Medications Considered but not given: We did talk about possibly using Paxlovid however the patient ultimately decided against this
� Further testing considered but not performed:
RISK OF COMPLICATIONS AND/OR MORBIDITY OR MORTALITY OF PATIENT MANAGEMENT
� Social determinants of health affecting care: Lives at home and [place]
� Discussion with other providers:
� Escalation of care including admission/observation vs risk of discharge considered: As patient recently had bacteremia/ESBL/UTI and presents with a fever, sepsis workup obtained. However, the patient is found to be positive
for COVID and her main symptom is primarily just sore throat. She is well-appearing. On reassessment at 5:55 AM, the patient is very well-appearing.
Past History
Past History
ED Past Medical History: GERD, HTN, Hypercholesterolemia, NIDDM and Other (carpal tunnel syndrome, Vertigo, Anemia,)
ED Past Surgical History: Appendectomy
Social History
Tobacco: Non-smoker
Alcohol: None
Drug: None
Personal:
Living: alone
Employment: Employed
Family History
Family History: Hypertension
Phy Exam
Physical Exam
Physical Exam:
See HPI
Course
Orders/Labs/Results
Orders:
Orders
09/27/23 04:50
COVID-19 Antigen Urgent
Source: Nasal Swab
09/27/23 04:53
Straight cath- Treatment ONCE
CR Chest - 2 Views Urgent
Comment:
Reason For Exam: fever
09/27/23 04:54
0.9% Sodium Chloride 500 ml [Nss] 500 ml IV BOLUS
Acetaminophen [Tylenol] 1,000 mg PO NOW STA
09/27/23 05:13
Basic Metabolic Panel Urgent
Complete Blood Count/With Diff Urgent
Blood Culture Urgent
MELANIE Source: Blood/Venous
Specimen Description:
Rapid Strep Group A Urgent
MELANIE Source: Throat/Pharynx
Specimen Description:
Date Specimen was Collected: 09/27/23
Time Specimen was Collected: 05:02
09/27/23 05:14
Lactic Acid Q4H
Comment: CANCEL 2nd LACTIC ACID IF 1st LACTIC ACID IS LESS THAN 2
Urinalysis Reflex To Culture Urgent
Date Specimen was Collected: 09/27/23
Time Specimen was Collected: 05:02
Abnormal Lab Results
09/27/23 09/27/23
04:50 05:13
Absolute Lymphs (auto) 1.1 L 10^3/uL
(1.2-3.4)
Absolute Monos (auto) 0.9 H 10^3/uL
(0.1-0.6)
Lymphocytes % 14.3 L %
(20.5-51.1)
Monocytes % 11.6 H %
(1.7-9.3)
Glucose 118 H mg/dl
(70-99)
SARS-CoV-2 Antigen Positive A
(Negative)
09/27/23 05:13
09/27/23 05:13
Vital Signs
Initial and Last Documented VS:
Initial Vital Signs
Temp Pulse Resp BP Pulse Ox
101.0 F H 93 22 152/70 95
09/27/23 04:56 09/27/23 04:56 09/27/23 04:56 09/27/23 04:56 09/27/23 04:56
Last Documented Vital Signs
Temp Pulse Resp BP Pulse Ox
101.0 F H 94 24 153/69 98
09/27/23 04:56 09/27/23 05:30 09/27/23 05:30 09/27/23 05:23 09/27/23 05:23
*Critical Care Note
Total Time (30-74mins, 75-104mins- exclusive of procedures): Not Applicable
ED Attending Note
-
Portions of this chart may have been created with voice recognition software.� Occasional wrong word or��sound alike� substitutions may have occurred due to the inherent limitations of voice recognition software.
Discharge Plan
Departure
Patient Disposition: Home (Routine Discharge)
Date of Disposition: 09/27/23
Time of Disposition: 06:04
Patient with high blood pressure during this ER visit?: Yes
Discharge Problem:
COVID-19
Prescriptions:
No Action
atenolol [Tenormin] 100 MG tablet
100 mg PO DAILY@1900
simvastatin 20 MG tablet
20 mg PO HS
metformin 500 MG tablet extended release 24 hr
500 mg PO BID
multivitamin Tablet
1 tab PO DAILY
meclizine 12.5 mg Tablet
12.5 mg PO [id number] PRN (Reason: dizziness)
aspirin 81 mg Tablet,Delayed Release (Dr/Ec)
81 mg PO HS
amlodipine 5 mg tablet
5 mg PO DAILY
acetaminophen [Pain Reliever ES(acetaminophn)] 500 mg tablet
1,000 mg PO TID
sulfamethoxazole-trimethoprim 800-160 mg Tablet
1 tab PO BID 7 Days Qty: 14 0RF
Activity Restrictions/Additional Instructions:
You are positive for COVID-19. I do not see any signs of pneumonia on x-ray. Urinalysis shows no sign of infection. White blood cell count and lactic acid levels are both you should stay home until you are fever free for 24 hours without the aid
of medication. You should use a mask while around others over the next few days. Return here if worse.
Interventions
Interventions:
*Risk Screen - Suicide Last Done: 09/27/23 04:52
*General Assessment Last Done: 09/27/23 04:52
*Neglect/Abuse Screening Last Done: 09/27/23 04:52
ED- Fall Risk Assessment Last Done: 09/27/23 05:35
*ED COVID-19 Vaccine History Last Done: 09/27/23 04:52
ED-EENT Assessment Last Done: 09/27/23 05:35
ED- Pulmonary Assessment Last Done: 09/27/23 05:35
Discharge Date and Time
Print Language: HUNGARIAN
[2023-09-27 04:56] VITALS: BP 152/70
[2023-09-27 05:04] LABS: COVID-19 Antigen Positive (Negative)
[2023-09-27] MEDS: TYLENOL 1000 MG PO (05:20)
[2023-09-27] MEDS: NSS 500 IV (05:21)
[2023-09-27 05:23] VITALS: BP 153/69
[2023-09-27 05:31] LABS: Urine Albumin Trace (Neg - Trace); Urine Bilirubin Negative (Negative); Urine Character Clear (Clear); Urine Color Yellow; Urine Glucose Negative (Negative); Urine Ketone Negative (Negative); Urine Leukocyte Negative (Negative); Urine Nitrite Negative (Negative); Urine Occult Blood Negative (Negative); Urine Urobilinogen Negative (Neg - 1+)
[2023-09-27 05:36] LABS: % Basophils 0.4 % (0-2); % Eosinophils 0.5 % (0-6); % Immature Granulocytes 0.3 % (0-0.5); % Lymphocytes 14.3 % (20.5-51.1); % Monocytes 11.6 % (1.7-9.3); % Neutrophils 72.9 % (42.2-75.2); Absolute Lymphocytes 1.1 10^3/uL (1.2-3.4); Absolute Monocytes 0.9 10^3/uL (0.1-0.6); Absolute Neutrophils 5.3 10^3/uL (1.4-6.5); Hematocrit 37.2 % (37.0-47.0); Mean Corp Hgb Conc. 34.9 g/dL (33.0-37.0); Mean Corpuscular Hgb 30.2 pg (27.0-31.0); Mean Corpuscular Volume 86.5 fL (81.0-99.0); Mean Platelet Volume 8.9 fL (7.4-10.4); Nucleated Red Blood Cells % 0 %; Platelet Count 337 10^3/uL (130-400); Red Cell Dist. Width 13.3 % (11.5-14.5); White Blood Cell Count 7.3 10^3/uL (4.8-10.8)
[2023-09-27 05:48] LABS: Lactic Acid 1.7 mmol/L (0.7-2.0)
[2023-09-27 05:49] LABS: Blood Urea Nitrogen 16 mg/dl (7-17); Calcium 9.9 mg/dl (8.4-10.2); Carbon Dioxide 29 mmol/L (22-30); Chloride 102 mmol/L (98-107); Estimated Creatinine Clearance 43 ml/min; Glucose 118 mg/dl (70-99); Potassium 4.5 mmol/L (3.5-5.1); Sodium 138 mmol/L (135-145); eGFR > 60.00
== END 2023-09-27 06:34 | disposition home or self-care (01) ==
LOC: EMR 04:44
PROVIDERS: EMERGENCY PHYSICIAN Emergency Medicine; FAMILY PHYSICIAN Family Medicine
DX: U07.1 COVID-19 (principal); K21.9 Gastro-esophageal reflux disease without esophagitis; I10 Essential (primary) hypertension; E78.00 Pure hypercholesterolemia, unspecified; E11.9 Type 2 diabetes mellitus without complications; G56.00 Carpal tunnel syndrome, unspecified upper limb; D64.9 Anemia, unspecified; Z82.49 Family history of ischemic heart disease and other diseases of the circulatory system; Z90.49 Acquired absence of other specified parts of digestive tract
CPT/HCPCS: 99283; 71046; 80048; 81003; 83605; 85025; 87040; 87070; 87811; 87880

== ENCOUNTER 2023-10-15 12:20 | Emergency (ER) | payer OTHER, SELFPAY ==
[2023-10-15 12:28] VITALS: BP 147/110
[2023-10-15 13:00] VITALS: BP 145/68
--- NOTE | 2023-10-15 13:07 | ED.GENMED ---
History of Present Illness
General
Chief Complaint: Musculo-Skeletal Complaint
Source: patient
Exam Limitations: none
Time Seen by Provider: 10/15/23 12:52
History of Present Illness
History of Present Illness:
FOOSH injury. No other complaints except for the wrist. No head injury no neck pain. No thinners.
Past History
Past History
ED Past Medical History: GERD, HTN, Hypercholesterolemia, NIDDM and Other (carpal tunnel syndrome, Vertigo, Anemia,)
ED Past Surgical History: Appendectomy
Social History
Tobacco: Non-smoker
Alcohol: None
Drug: None
Personal:
Living: alone
Employment: Employed
Family History
Family History: Hypertension
Review of Systems
Review of Systems
All Other Systems: Not applicable
Phy Exam
Physical Exam
Physical Exam:
General: Nontoxic appearing in no distress
Skin: Warm and dry, no rash
Neuro: Alert, nontoxic, grossly nonfocal
Psychiatric: Good eye contact and appropriate
Musculoskeletal: Swelling mild deformity to the left wrist. Motor or sensory neurovascular intact. No open fracture. Proximal forearm nontender. Elbow negative. Shoulder negative.
Course
Orders/Labs/Results
Orders:
Orders
10/15/23 12:31
CR Wrist - Left Min 3 Views Urgent
Comment:
Reason For Exam: fall, pain
Vital Signs
Initial and Last Documented VS:
Initial Vital Signs
Temp Pulse Resp BP Pulse Ox
98.0 F 80 16 147/110 98
10/15/23 12:28 10/15/23 12:28 10/15/23 12:28 10/15/23 12:28 10/15/23 12:28
Last Documented Vital Signs
Temp Pulse Resp BP Pulse Ox
98.0 F 80 16 147/110 98
10/15/23 12:28 10/15/23 12:28 10/15/23 12:28 10/15/23 12:28 10/15/23 12:28
*Radiology
Radiology exam reviewed: preliminary read by ED provider (Dorsal angulated Colles' fracture) and radiology read reviewed (Comminuted displaced fracture distal radius dorsal angulation)
*Pulse Oximetry
Patient hypoxic: no
*Critical Care Note
Total Time (30-74mins, 75-104mins- exclusive of procedures): Not Applicable
Update Note
Update Note:
X-ray sent to orthopedics. Splint and follow-up is coming Tuesday
Discussed pain management with patient. She will stick to Tylenol and an occasional Motrin.
ED Attending Note
-
Portions of this chart may have been created with voice recognition software.� Occasional wrong word or��sound alike� substitutions may have occurred due to the inherent limitations of voice recognition software.
Discharge Plan
Departure
Patient Disposition: Home (Routine Discharge)
Date of Disposition: 10/15/23
Time of Disposition: 13:23
Patient with high blood pressure during this ER visit?: Yes
Discharge Problem:
Comminuted distal radius fracture left, HTN (hypertension)
Instructions: Forearm and Wrist Fractures ED, BLOOD PRESSURE
Prescriptions:
No Action
atenolol [Tenormin] 100 MG tablet
100 mg PO DAILY@1900
simvastatin 20 MG tablet
20 mg PO HS
metformin 500 MG tablet extended release 24 hr
500 mg PO BID
multivitamin Tablet
1 tab PO DAILY
meclizine 12.5 mg Tablet
12.5 mg PO [id number] PRN (Reason: dizziness)
aspirin 81 mg Tablet,Delayed Release (Dr/Ec)
81 mg PO HS
amlodipine 5 mg tablet
5 mg PO DAILY
acetaminophen [Pain Reliever ES(acetaminophn)] 500 mg tablet
1,000 mg PO TID
sulfamethoxazole-trimethoprim 800-160 mg Tablet
1 tab PO BID 7 Days Qty: 14 0RF
Referrals:
Shekhar Gonzales MD [Family Provider] -
Devonte Rehman MD [Active] - Follow up in 2-3 days
Activity Restrictions/Additional Instructions:
Call the orthopedist first thing Tuesday morning. They will see you Tuesday for further evaluation and management
Tylenol for pain. You can also take an occasional Advil or Motrin.
Interventions
Interventions:
*General Assessment Last Done: 10/15/23 12:28
*ED COVID-19 Vaccine History Last Done: 10/15/23 12:28
Discharge Date and Time
Print Language: IRAQI
== END 2023-10-15 13:55 | disposition home or self-care (01) ==
LOC: EMR 12:20
PROVIDERS: EMERGENCY PHYSICIAN Emergency Medicine; FAMILY PHYSICIAN Family Medicine
DX: S52.532A Colles' fracture of left radius, initial encounter for closed fracture (principal); W18.39XA Other fall on same level, initial encounter; I10 Essential (primary) hypertension; E11.9 Type 2 diabetes mellitus without complications; E78.00 Pure hypercholesterolemia, unspecified; K21.9 Gastro-esophageal reflux disease without esophagitis; D64.9 Anemia, unspecified; Z79.82 Long term (current) use of aspirin; Z79.84 Long term (current) use of oral hypoglycemic drugs; Z88.8 Allergy status to other drugs, medicaments and biological substances
CPT/HCPCS: 99283; 29125; 73110

== ENCOUNTER → 2023-10-17 14:51 | Outpatient (REF) | payer OTHER, SELFPAY | LOC: RCS 14:51 | PROVIDERS: ATTENDING PHYSICIAN Orthopaedic Surgery; FAMILY PHYSICIAN Family Medicine | DX: Z01.818 Encounter for other preprocedural examination (principal) | CPT/HCPCS: 93005 ==

== ENCOUNTER 2025-02-16 05:40 | Emergency (ER) | payer OTHER, SELFPAY ==
[2025-02-16 05:57] VITALS: BP 143/71
--- NOTE | 2025-02-16 08:38 | ED.GENMED ---
History of Present Illness
<Yahir Moe MD, Resident - Last Filed: 02/16/25 13:21>
General
Chief Complaint: Back Pain
Time Seen by Provider: 02/16/25 08:37
History of Present Illness
History of Present Illness:
79 yo F PMH sciatica, HTN, HLD, NIDDM, GERD, BPPV, carpal tunnel p/w right sided lower back, side, and hip pain that woke her up Tuesday
the pain may be chronic and ongoing for several months
no acute trauma, falls. it hurts when she's sitting or lying down on it for extended periods of time and pain is still present but improves when she is walking.
no saddle anesthesia, no bladder/bowel dysfunction, no acute numbness or weakness of legs (She follows with PT for better walking)
chart hx of R sciatica and she does not endorse shooting pain down her leg this encounter.
no syncope, no headache, chest pain, dyspnea, abdominal pain.
social history is unremarkable
Past History
<Yahir Moe MD, Resident - Last Filed: 02/16/25 13:21>
Past History
ED Past Medical History: GERD, HTN, Hypercholesterolemia, NIDDM and Other (carpal tunnel syndrome, Vertigo, Anemia,)
ED Past Surgical History: Appendectomy
Social History
Tobacco: Non-smoker
Alcohol: None
Drug: None
Personal:
Living: alone
Employment: Employed
Family History
Family History: Hypertension
Review of Systems
<Yahir Moe MD, Resident - Last Filed: 02/16/25 13:21>
Review of Systems
Constitutional: Reports no symptoms
EENT: Reports no symptoms
Respiratory: Reports no symptoms
Cardiac: Reports no symptoms
ABD/GI: Reports no symptoms
: Reports flank pain
Musculoskeletal: Reports back pain
Skin: Reports no symptoms
Neurological: Reports no symptoms
Phy Exam
<Yahir Moe MD, Resident - Last Filed: 02/16/25 13:21>
Physical Exam
Physical Exam:
VS: 143/71; HR 74; T 98.5, 97%
General: no acute distress
CV: systolic, likely crescendo-decrescendo, murmur loudest near Erb's point
Pulm: CTAB
GI: no tenderness to palpation
MSK/Back: no deformity on the spine, focal tenderness of right CVA,
Neuro: AOx3, lower extremities equally strong, raising right hip does not elicit pain in lower back
Skin: no rashes visible over right lower back/flank/hip
Course
<Yahir Moe MD, Resident - Last Filed: 02/16/25 13:21>
Orders/Labs/Results
Orders:
Orders
02/16/25 06:05
Hip, Right 2-3 Views [CR Hip - RT w/wo Pel 2-3 Vw*] Urgent
Comment: no injury
Reason For Exam: pain
Include a pelvis x-ray?: Yes
02/16/25 09:17
Lumbar Spine Complete, 4 View [CR Lumbar Spine Comp Min 4 Vw*] Urgent
Comment:
Reason For Exam: right lower back/flank pain
Ribs, Right 3 View W/PA Chest [CR Ribs-right 3 Vw W/pa Chest*] Urgent
Comment:
Reason For Exam: right lower back pain
02/16/25 09:41
Urine Culture Reflexed from UA [Urinalysis Reflex To Culture] Urgent
Date Specimen was Collected: 02/16/25
Time Specimen was Collected: 06:04
Urine Microscopic Reflex Cult Urgent
Urine Culture Urgent
MELANIE Source: U
Specimen Description:
Date Specimen was Collected: 02/16/25
Time Specimen was Collected: 06:04
02/16/25 11:58
Urinalysis Reflex To Culture Urgent
Date Specimen was Collected: 02/16/25
Time Specimen was Collected: 11:37
Comment: repeat UA is being requested
Urine Microscopic Reflex Cult Urgent
Urine Culture Urgent
MELANIE Source: U
Specimen Description:
Date Specimen was Collected: 02/16/25
Time Specimen was Collected: 11:37
Abnormal Lab Results
02/16/25 02/16/25
09:41 11:58
Leukocyte Esterase Rfl 3+ A 2+ A
(Negative) (Negative)
Urine WBC (Reflex) 70-80 A /HPF 16-20 A /HPF
(0-5) (0-5)
Urine Bacteria (Reflex) Moderate A Moderate A
(Negative) (Negative)
Urine Albumin (Reflex) 1+ A 1+ A
(Neg - Trace) (Neg - Trace)
Vital Signs
Initial and Last Documented VS:
Initial Vital Signs
Temp Pulse Resp BP Pulse Ox
98.5 F 74 20 143/71 97
02/16/25 05:57 02/16/25 05:57 02/16/25 05:57 02/16/25 05:57 02/16/25 05:57
Last Documented Vital Signs
Temp Pulse Resp BP Pulse Ox
98.5 F 71 16 133/77 97
02/16/25 05:57 02/16/25 09:39 02/16/25 09:39 02/16/25 09:39 02/16/25 09:39
<Jeramy Whiteside, DO - Last Filed: 02/16/25 13:39>
Orders/Labs/Results
Orders:
Orders
02/16/25 06:05
Hip, Right 2-3 Views [CR Hip - RT w/wo Pel 2-3 Vw*] Urgent
Comment: no injury
Reason For Exam: pain
Include a pelvis x-ray?: Yes
02/16/25 09:17
Lumbar Spine Complete, 4 View [CR Lumbar Spine Comp Min 4 Vw*] Urgent
Comment:
Reason For Exam: right lower back/flank pain
Ribs, Right 3 View W/PA Chest [CR Ribs-right 3 Vw W/pa Chest*] Urgent
Comment:
Reason For Exam: right lower back pain
02/16/25 09:41
Urine Culture Reflexed from UA [Urinalysis Reflex To Culture] Urgent
Date Specimen was Collected: 02/16/25
Time Specimen was Collected: 06:04
Urine Microscopic Reflex Cult Urgent
Urine Culture Urgent
MELANIE Source: U
Specimen Description:
Date Specimen was Collected: 02/16/25
Time Specimen was Collected: 06:04
02/16/25 11:58
Urinalysis Reflex To Culture Urgent
Date Specimen was Collected: 02/16/25
Time Specimen was Collected: 11:37
Comment: repeat UA is being requested
Urine Microscopic Reflex Cult Urgent
Urine Culture Urgent
MELANIE Source: U
Specimen Description:
Date Specimen was Collected: 02/16/25
Time Specimen was Collected: 11:37
Abnormal Lab Results
02/16/25 02/16/25
09:41 11:58
Leukocyte Esterase Rfl 3+ A 2+ A
(Negative) (Negative)
Urine WBC (Reflex) 70-80 A /HPF 16-20 A /HPF
(0-5) (0-5)
Urine Bacteria (Reflex) Moderate A Moderate A
(Negative) (Negative)
Urine Albumin (Reflex) 1+ A 1+ A
(Neg - Trace) (Neg - Trace)
Vital Signs
Initial and Last Documented VS:
Initial Vital Signs
Temp Pulse Resp BP Pulse Ox
98.5 F 74 20 143/71 97
02/16/25 05:57 02/16/25 05:57 02/16/25 05:57 02/16/25 05:57 02/16/25 05:57
Last Documented Vital Signs
Temp Pulse Resp BP Pulse Ox
98.5 F 71 16 133/77 97
02/16/25 05:57 02/16/25 09:39 02/16/25 09:39 02/16/25 09:39 02/16/25 09:39
<Yahir Moe MD, Resident - Last Filed: 02/16/25 13:21>
MDM/Problems Addressed
Differential Diagnosis Includes:
sciatica flare, fracture, MSK strain, osteoarthritis, acute spinal cord compression, UTI, renal colic, pyelonephritis
MDM/Problems Addressed:
79 yo F p/w right lower back/flank pain
no red flag symptoms to be concerning for acute spinal cord compression
afebrile VS largely stable, does not appear to be UTI/renal colic/pyelonephritis but will check UA
focal tenderness over right flank
Right Hip x-ray IMPRESSION: There is no evidence acute fracture or dislocation of the right hip.
Plan:
UA pending
lumbar spine x-ray
R rib x-ray series
Update:
lumbar and rib x-rays largely unremarkable
UA showed 3+ leukocyte esterase, 70-80 WBCs, >30 squamous epithelial, and moderate bacteria
Ordering a repeat UA to attempt to reduce squamous epithelial contribution
After further discussion, decision has been made to empirically treat with cephalexin 500mg bid for 5 days
Patient will be discharged home and patient is okay to with plan.
Patient should follow-up with her PCP outpatient.
<Yahir Moe MD, Resident - Last Filed: 02/16/25 13:21>
*Pulse Oximetry
SaO2: 97
Oxygen Mode of Delivery: Room air
Patient hypoxic: no
*Critical Care Note
Total Time (30-74mins, 75-104mins- exclusive of procedures): Not Applicable
ED Attending Note
<Yahir Moe MD, Resident - Last Filed: 02/16/25 13:21>
-
Portions of this chart may have been created with voice recognition software.� Occasional wrong word or��sound alike� substitutions may have occurred due to the inherent limitations of voice recognition software.
<Jeramy Whiteside, - Last Filed: 02/16/25 13:39>
ED Attending Note
Patient seen and examined by attending physician: Yes
I performed a history and physical exam of patient and discussed management with resident, I reviewed resident's note and agree with documented findings and plan of care.: Yes
ED Attending Note:
I have reviewed and agree with history treatment plan by Yahir Moe MD. My exam revealed 79-year-old female in no acute distress. Mild tenderness palpation right lower ribs and right hip. Ambulates without difficulty. UA c/w UTI, stable
for dc. tx w/ keflex.
Discharge Plan
Departure
Patient Disposition: Home (Routine Discharge)
Date of Disposition: 02/16/25
Time of Disposition: 12:58
Patient with high blood pressure during this ER visit?: Yes
Condition: Good
Discharge Problem:
Acute UTI
Prescriptions:
New
cephalexin 500 mg capsule
500 mg PO BID 5 Days Qty: 10 0RF
No Action
atenolol [Tenormin] 100 MG tablet
100 mg PO DAILY@1900
simvastatin 20 MG tablet
20 mg PO HS
metformin 500 MG tablet extended release 24 hr
500 mg PO BID
multivitamin Tablet
1 tab PO DAILY
meclizine 12.5 mg Tablet
12.5 mg PO [id number] PRN (Reason: dizziness)
aspirin 81 mg Tablet,Delayed Release (Dr/Ec)
81 mg PO HS
amlodipine 5 mg tablet
5 mg PO DAILY
acetaminophen [Pain Reliever ES(acetaminophn)] 500 mg tablet
1,000 mg PO TID
sulfamethoxazole-trimethoprim 800-160 mg Tablet
1 tab PO BID 7 Days Qty: 14 0RF
Referrals:
Shekhar Gonzales MD [Family Provider, Family Practice]
Activity Restrictions/Additional Instructions:
Please take cephalexin 500mg bid PO for 5 days.
Please follow-up with your family doctor soon.
You should return to ER or seek care if you experience severe back pain or worsening symptoms.
Interventions
Interventions:
*General Assessment Last Done: 02/16/25 05:57
*Neglect/Abuse Screening Last Done: 02/16/25 05:57
*ED COVID-19 Vaccine History Last Done: 02/16/25 05:57
*ED Influenza Vaccine History Last Done: 02/16/25 05:57
[facility] Fall Risk Assessment Tool Last Done: 02/16/25 09:39
*Risk Screen - Suicide (C-SSRS) Last Done: 02/16/25 05:57
*Nursing Disposition Last Done: 02/16/25 13:09
ED-Musculoskeletal Assessment Last Done: 02/16/25 09:39
Discharge Date and Time
Discharge Date/Time: 02/16/25 13:10
Print Language: HUNGARIAN
[2025-02-16 09:38] VITALS: BP 133/77
[2025-02-16 09:39] VITALS: BP 133/77; BMI 24.5
[2025-02-16 10:28] LABS: Urine Character Clear (Clear)
[2025-02-16 11:22] LABS: Urine Squamous Cell >30 /LPF (Few)
[2025-02-16 11:24] LABS: Urine Red Blood Cell 0-2 /HPF (0-2); Urine White Cell 70-80 /HPF (0-5)
[2025-02-16 12:12] LABS: Urine Character Clear (Clear)
[2025-02-16 13:27] LABS: Urine Red Blood Cell 0-2 /HPF (0-2); Urine Squamous Cell 16-20 /LPF (Few); Urine White Cell 16-20 /HPF (0-5)
== END 2025-02-16 13:10 | disposition home or self-care (01) ==
LOC: EMR 05:40
PROVIDERS: Emergency Medicine; EMERGENCY PHYSICIAN Emergency Medicine; FAMILY PHYSICIAN Family Medicine
DX: N39.0 Urinary tract infection, site not specified (principal); E11.9 Type 2 diabetes mellitus without complications; I10 Essential (primary) hypertension; E78.00 Pure hypercholesterolemia, unspecified; K21.9 Gastro-esophageal reflux disease without esophagitis; H81.10 Benign paroxysmal vertigo, unspecified ear; Z79.84 Long term (current) use of oral hypoglycemic drugs; Z79.82 Long term (current) use of aspirin; Z82.49 Family history of ischemic heart disease and other diseases of the circulatory system
CPT/HCPCS: 99284; 71101; 72110; 73502; 81003; 81015; 87086